=== PATIENT | male | born 1930 | race Two or more races ===

== ENCOUNTER 2017-07-23 11:04 | Inpatient (IN) | payer OTHER, MEDICAID ==
[~2017-07-23] VITALS: Ht 162.6 cm; Wt 95.3 kg
[~2017-07-23 11:04] MED LIST: ALPR0.5T7 PO; CLON0.2T12 PO; CLOP75TA41 PO; FLUC100T PO; INSLANTI SC; SELE5CAP PO
[2017-07-23 12:15] LABS: Basophils # (auto) 0 uL; Basophils % (auto) 0.4 % (0.0-2.0); Eosinophils # (auto) 0 uL; Eosinophils % (auto) 0.8 % (0.0-7.0); Hematocrit 37.9 % (41.0-53.0); Hemoglobin 12.2 g/dL (13.5-17.5); Lymphocytes # (auto) 0.4 uL; Lymphocytes % (auto) 6.9 % (10.0-50.0); Mean Corpuscular Hemoglobin 29.7 pg (28.0-32.0); Mean Corpuscular Hgb Conc. 32.2 g/dL (32.0-36.0); Mean Corpuscular Volume 92.2 fL (80.0-100.0); Monocytes # (auto) 0.6 uL; Monocytes % (auto) 9.3 % (0.0-12.0); Neutrophils # (auto) 5.2 uL; Neutrophils % (auto) 82.6 % (37.0-80.0); Platelet Count (auto) 241 10^3/uL (140-450); Red Blood Cells 4.11 10^6/uL (4.5-5.90); Red Cell Distribution Width 14.9 % (11.8-14.3); White Blood Cell 6.3 10^3/uL (4.4-10.8)
[2017-07-23 12:34] LABS: Alanine Aminotransferase 63 U/L (16-61); Albumin 2.6 g/dL (3.4-5.0); Anion Gap 5 (5-15); Aspartate Aminotransferase 38 U/L (15-37); BUN/Creatinine Ratio 21.8; Blood Urea Nitrogen 69 mg/dL (7-18); Calcium 9.3 mg/dL (8.5-10.1); Carbon Dioxide 37 mmol/L (21-32); Chloride 98 mmol/L (98-107); GFR African American 24 mL/min; GFR Non-African American 20 mL/min; Glucose 186 mg/dL (74-106); Magnesium 2.8 mg/dL (1.6-2.6); Potassium 4.9 mmol/L (3.5-5.1); Sodium 140 mmol/L (136-145)
[2017-07-23 12:38] LABS: Alkaline Phosphatase 177 U/L (45-117); Bilirubin, Total 0.4 mg/dL (0.2-1.0); Total Protein 6.7 g/dL (6.4-8.2)
[2017-07-23] MEDS ORDERED: SODIUM CHLORIDE 0.9% 1,000 ML IV ONE (15:25)
[2017-07-23] MEDS ORDERED: MORPHINE SULFATE 4 MG/ML SYR/VIAL IV PRN (18:30)
[2017-07-23] MEDS ORDERED: NITROGLYCERIN 0.4 MG SL TAB SL PRN (18:30)
[2017-07-23] MEDS ORDERED: VANCOMYCIN PER PHARMACY 0 MG IV SCH (19:00)
[2017-07-23] MEDS ORDERED: VANCOMYCIN 1GM/250ML 250 ML IV ONE (19:30)
[2017-07-23 19:33] LABS: Urine Bacteria NONE SEEN /hpf (None Seen); Urine Blood Negative /uL (Negative); Urine Specific Gravity 1.015 (1.001-1.035); Urine WBC 1 /hpf (0 - 3)
[2017-07-23] MEDS ORDERED: PIPERACILLIN-TAZOB 2.25GM 50 ML IV ONE (22:00)
[2017-07-23] MEDS ORDERED: LORazepam 2MG/ML-1ML VIAL IV ONE (22:00)
[2017-07-23] MEDS: SODIUM CHLORIDE 0.9% 1,000 ML IV SCH (23:00)
[2017-07-24 00:15] VITALS: BP 125/56
[2017-07-24 07:30] LABS: Basophils # (auto) 0 uL; Basophils % (auto) 0.6 % (0.0-2.0); Eosinophils # (auto) 0.1 uL; Eosinophils % (auto) 1.1 % (0.0-7.0); Hematocrit 38.8 % (41.0-53.0); Hemoglobin 12.7 g/dL (13.5-17.5); Lymphocytes # (auto) 0.4 uL; Lymphocytes % (auto) 6.1 % (10.0-50.0); Mean Corpuscular Hemoglobin 30.2 pg (28.0-32.0); Mean Corpuscular Hgb Conc. 32.8 g/dL (32.0-36.0); Monocytes # (auto) 0.6 uL; Monocytes % (auto) 7.8 % (0.0-12.0); Neutrophils # (auto) 6.2 uL; Neutrophils % (auto) 84.4 % (37.0-80.0); Nucleated Red Blood Cells % 0.1 %; Platelet Count (auto) 242 10^3/uL (140-450); Red Blood Cells 4.21 10^6/uL (4.5-5.90); Red Cell Distribution Width 14.4 % (11.8-14.3); White Blood Cell 7.3 10^3/uL (4.4-10.8)
[2017-07-24 07:45] LABS: Albumin 2.6 g/dL (3.4-5.0); BUN/Creatinine Ratio 22.6; Calcium 9.4 mg/dL (8.5-10.1)
[2017-07-24 07:47] LABS: Bilirubin, Total 0.4 mg/dL (0.2-1.0); Total Protein 6.5 g/dL (6.4-8.2)
[2017-07-24 09:00] VITALS: BP 142/64
[2017-07-24] MEDS ORDERED: VANCOMYCIN 1GM/250ML 250 ML IV ONE (10:00)
[2017-07-24 13:00] VITALS: BP 142/62
[2017-07-24 17:00] VITALS: BP 141/110
[2017-07-24] MEDS ORDERED: DIAZEPAM 5 MG/ML 2ML SYRG IV PRN (17:15)
[2017-07-24] MEDS: SODIUM CHLORIDE 0.9% 1,000 ML IV SCH (17:38)
[2017-07-24 23:16] VITALS: BP 132/74
[2017-07-25 05:37] VITALS: BP 138/68
[2017-07-25 06:13] LABS: Basophils # (auto) 0 uL; Basophils % (auto) 0.6 % (0.0-2.0); Eosinophils # (auto) 0 uL; Eosinophils % (auto) 0.6 % (0.0-7.0); Hematocrit 39.1 % (41.0-53.0); Hemoglobin 12.7 g/dL (13.5-17.5); Lymphocytes # (auto) 0.4 uL; Lymphocytes % (auto) 6.1 % (10.0-50.0); Mean Corpuscular Hemoglobin 30.1 pg (28.0-32.0); Mean Corpuscular Hgb Conc. 32.5 g/dL (32.0-36.0); Mean Corpuscular Volume 92.7 fL (80.0-100.0); Monocytes # (auto) 0.8 uL; Monocytes % (auto) 10.8 % (0.0-12.0); Neutrophils # (auto) 5.8 uL; Neutrophils % (auto) 81.9 % (37.0-80.0); Nucleated Red Blood Cells % 0.1 %; Platelet Count (auto) 254 10^3/uL (140-450); Red Blood Cells 4.22 10^6/uL (4.5-5.90); Red Cell Distribution Width 14.6 % (11.8-14.3); White Blood Cell 7.1 10^3/uL (4.4-10.8)
[2017-07-25 06:21] LABS: BUN/Creatinine Ratio 22.1; Calcium 9.6 mg/dL (8.5-10.1); Potassium 5.4 mmol/L (3.5-5.1)
[2017-07-25 08:22] LABS: Free T4 (Free Thyroxine) 0.86 ng/dL (0.89-1.76)
[2017-07-25 08:23] LABS: Folate (Folic Acid) 11.55 ng/mL (5.38-24)
[2017-07-25] MEDS ORDERED: DIAZEPAM 5 MG TAB PO ONE (08:45)
[2017-07-25 08:53] VITALS: BP 143/68
[2017-07-25] MEDS ORDERED: VANCOMYCIN 750 MG in D5W 5% 250 ML IV ONE (10:00)
[2017-07-25] MEDS ORDERED: ASPirin 81 mg TAB PO SCH (10:00)
[2017-07-25] MEDS: SODIUM CHLORIDE 0.9% 1,000 ML IV SCH (12:47)
[2017-07-25] MEDS ORDERED: SOD CHL 0.45% 1,000 ML IV SCH (14:45)
[2017-07-25 17:04] LABS: BUN/Creatinine Ratio 22.7; Calcium 9.1 mg/dL (8.5-10.1); Potassium 5.1 mmol/L (3.5-5.1)
[2017-07-26 02:06] LABS: RPR Non Reactive (Non Reactive)
== END 2017-07-25 17:25 | DRG 682 ==
LOC: ER 11:04 → EDBD 11:04 → TELE 11:05 → WEST WING 23:45 → TELE-WESTW 23:45
PROVIDERS: ADMIT Internal Medicine; ATTEND Internal Medicine
DX: N17.9 Acute kidney failure, unspecified (principal); G93.41 Metabolic encephalopathy; E44.0 Moderate protein-calorie malnutrition; E11.21 Type 2 diabetes mellitus with diabetic nephropathy; E11.22 Type 2 diabetes mellitus with diabetic chronic kidney disease; F13.20 Sedative, hypnotic or anxiolytic dependence, uncomplicated; G20 Parkinson's disease; I13.0 Hypertensive heart and chronic kidney disease with heart failure and stage 1 through stage 4 chronic kidney disease, or unspecified chronic kidney disease; N18.4 Chronic kidney disease, stage 4 (severe); E66.9 Obesity, unspecified; F03.90 Unspecified dementia, unspecified severity, without behavioral disturbance, psychotic disturbance, mood disturbance, and anxiety; F41.9 Anxiety disorder, unspecified; I50.9 Heart failure, unspecified; I87.2 Venous insufficiency (chronic) (peripheral); I67.2 Cerebral atherosclerosis; J44.9 Chronic obstructive pulmonary disease, unspecified; E86.0 Dehydration; Z85.51 Personal history of malignant neoplasm of bladder; Z68.36 Body mass index [BMI] 36.0-36.9, adult; Z88.0 Allergy status to penicillin; Z79.899 Other long term (current) drug therapy; Z79.4 Long term (current) use of insulin
CPT/HCPCS: 36415; 51702; 70450; 71045; 80048; 80053; 80202; 81001; 82140; 82550; 82607; 82746; 83735; 83880; 84439; 84443; 84484; 85025; 86592; 87040; 87081; 87086; 93005; 94761; 95819; 96361; 96365; 96375; 97110; 97530; J7060